=== PATIENT | male | born 1980 | race Caucasian/White ===

== ENCOUNTER 2022-04-27 11:20 | Emergency (ER) | payer SELFPAY ==
[2022-04-27 12:07] VITALS: BP 114/63; PULSE 79; RESP 20; TEMP 98.5; BMI 22.4
[2022-04-27] MEDS ORDERED: MECLIZINE HCL 25 MG TABLET (FP) PO ONE (12:37)
[2022-04-27] MEDS ORDERED: MECLIZINE HCL 25 MG TABLET (FP) ONE (12:41)
== END 2022-04-27 14:39 | disposition home or self-care (01) ==
LOC: FER 11:20
DX: R42 Dizziness and giddiness (principal)
CPT/HCPCS: 70450-TC; 93005; 99284-25